=== PATIENT | female | born 1950 | race Two or more races ===

== ENCOUNTER 2021-11-21 10:23 | Inpatient (IN) | payer OTHER ==
[~2021-11-21] VITALS: Ht 152.4 cm; Wt 68.0 kg
[~2021-11-21 10:23] MED LIST: ADVIL100 M1; ANTIVERT25 M1 PO; LIPOFLAVOVIT CA1 TAB PO; PROTONIX40 MG PO
[2021-11-21] MEDS ORDERED: ATORVASTATIN CA40 MG PO (10:32)
[2021-11-21] MEDS ORDERED: PRAMIPEXOLE E2.25 MG (10:34)
--- NOTE | 2021-11-21 10:36 | NUR ---
SE RECIBE FEMINA DE 71 ANOS ALERTA Y ORIENTADA X3 LA CUAL REFIERE SENTIR [facility] EN LA [place] IN[place] ALIMENTO EN EL LEIGH DE DEAN. PTE REFIERE QUE NO [place] [facility] [place]. AL MOMENTO NO PRESENTA DIFICULTAD RESPIRATORIA. S/V ESTABLES. SE COLOCA EN AREA DE OBSERVACION EN ESPERA DE EVALUACION MEDICA.
--- NOTE | 2021-11-21 10:57 | NUR ---
PACIENTE EVALUADA POR EL QUIEN ORDENA TRATAMIENTO MEDICO.SE ORIENTA PACIENTE SOBRE EL MISMO ESTA REFIERE ENTENDER. LANEY THOMPSON REALIZA MUESTRAS DE LABORATORIO Y ADMINISTRA MEDICAMENTOS JOSE ANTONIO ORDEN.SE ESPERA POR PLACA PENDIENTE
== END 2021-11-23 18:33 | disposition home or self-care (01) | DRG 395 ==
LOC: ER 10:23 → SEC-K 18:48 → MEDJ 11-22 18:41
PROVIDERS: ADMIT Internal Medicine; ATTEND Internal Medicine
PROC: 0DB68ZX Excision of Stomach, Via Natural or Artificial Opening Endoscopic, Diagnostic (ICD-10-PCS; principal; 2021-11-22)
DX: T18.128A Food in esophagus causing other injury, initial encounter (principal); K22.2 Esophageal obstruction; R13.19 Other dysphagia; K21.9 Gastro-esophageal reflux disease without esophagitis; G25.81 Restless legs syndrome; K31.89 Other diseases of stomach and duodenum; E11.9 Type 2 diabetes mellitus without complications; Z79.4 Long term (current) use of insulin; Z20.822 Contact with and (suspected) exposure to COVID-19; E78.49 Other hyperlipidemia

== ENCOUNTER 2022-12-24 17:07 | Emergency (ER) | payer OTHER ==
[~2022-12-24] VITALS: Ht 160 cm; Wt 70.8 kg
[~2022-12-24 17:07] MED LIST changes: +ATORVASTATIN CA40 MG PO; +PRAMIPEXOLE E2.25 MG
[2022-12-24] MEDS ORDERED: SIMVASTATIN40 MG PO (17:20)
[2022-12-24] MEDS ORDERED: ADULT LOW DOSE81 M1 PO (17:21)
[2022-12-24] MEDS ORDERED: NEURONTIN300 MG (17:21)
== END 2022-12-24 19:31 | disposition home or self-care (01) ==
LOC: ER 17:07
PROVIDERS: General Practice
DX: R07.89 Other chest pain (principal); R53.1 Weakness
CPT/HCPCS: 36415; 93005; 96372; 99284; J1885